=== PATIENT | female | born 1950 | race Hispanic/Latino ===

== ENCOUNTER 2018-06-18 09:58 | Emergency (ER) | payer MEDICARE ==
[2018-06-18 10:37] VITALS: BP 169/80; PULSE 71; RESP 20; TEMP 97.7; O2SAT 95
[2018-06-18] MEDS ORDERED: PROPARACAINE/FLUORESCEIN SOD 100 DROP/5 ML BOTTLE OD STA (11:19)
[2018-06-18] MEDS ORDERED: Tetracaine 0.5% Ophth (OR ONLY) ONE (11:29)
--- NOTE | 2018-06-18 11:31 | C.PDOC ---
History Of Present Illness 68 y/o female presents to the ER complaining of foreign body sensation in right eye since yesterday. Patient states that she accidentally poked herself in the right eye with her thumbnail. Patient reports that she did not try any remedies.Denies having drainage, fever, and chills. Time Seen by Provider: 06/18/18 11:18 Chief Complaint (Nursing): Eye Problem History Per: Patient History/Exam Limitations: no limitations Onset/Duration Of Symptoms: Days Current Symptoms Are (Timing): Still Present Severity: Moderate Past Medical History Reviewed: Historical Data, Nursing Documentation, Vital Signs Vital Signs: Last Vital Signs Temp 97.7 F 06/18/18 10:33 Pulse 71 06/18/18 10:33 Resp 20 06/18/18 10:33 BP 169/80 H 06/18/18 10:33 Pulse Ox 95 06/18/18 10:33 - Medical History PMH: HTN Surgical History: CABG Family History: States: No Known Family Hx - Social History Hx Alcohol Use: No Hx Substance Use: No - Immunization History Hx Tetanus Toxoid Vaccination: Yes Hx Influenza Vaccination: Yes Hx Pneumococcal Vaccination: No Review Of Systems Except As Marked, All Systems Reviewed And Found Negative. Eyes: Positive for: Other (foreign body sensation in right eye) Physical Exam - Physical Exam Appears: Non-toxic, No Acute Distress Skin: Normal Color, Warm, Dry Head: Atraumatic, Normacephalic Eye(s): right: Other (injected sclera, 1x1 cm corneal abrasion around 3 to 6 o clock visualized with fluorescein and 2 drops of tetracaine, no foreign body visualized), left: Normal Inspection Nose: Normal Oral Mucosa: Moist Neck: Supple Chest: Symmetrical Neurological/Psych: Oriented x3, Normal Speech ED Course And Treatment O2 Sat by Pulse Oximetry: 95 (RA) Pulse Ox Interpretation: Normal Medical Decision Making Medical Decision Making: R corneal abrasion x 1 day no FB Disposition Doctor Will See Patient In The: Office Counseled Patient/Family Regarding: Studies Performed, Diagnosis - Disposition Referrals: Gilmar Fatima [Staff Provider] - Shivam Vazquez MD [Staff Provider] - Disposition: HOME/ ROUTINE Disposition Time: 11:31 Condition: GOOD Additional Instructions: 1x1 cm corneal abrasion 3-6'oclock position of R cornea, no foreign body ice packs to the eye 1/2 hour per hour, nothing hot motrin/Advil 400-600 mg every 6 hours as needed for pain/discomfort outpatient f/u w Opthalmology Dr. Fatima; Call for appt. Instructions: Corneal Abrasion Forms: [facility] ([place]ian) - Clinical Impression Clinical Impression: Corneal abrasion, right - Scribe Statement The provider has reviewed the documentation as recorded by the Rosaibnisreen Hsieh Provider Attestation: All medical record entries made by the Rosaibnisreen were at my direction and personally dictated by me. I have reviewed the chart and agree that the record accurately reflects my personal performance of the history, physical exam, medical decision making, and the department course for this patient. I have also personally directed, reviewed, and agree with the discharge instructions and disposition.
[2018-06-18] MEDS ORDERED: Fluorescein 1 mg Ophthalmic Strip OD ONE (11:35)
[2018-06-18] MEDS ORDERED: Tetracaine 0.5% Ophth 2 ML BOTTLE OD ONE (11:35)
== END 2018-06-18 11:42 | disposition home or self-care (01) ==
LOC: C.ER 09:58
DX: S05.01XA Injury of conjunctiva and corneal abrasion without foreign body, right eye, initial encounter (principal); W22.8XXA Striking against or struck by other objects, initial encounter; I10 Essential (primary) hypertension